=== PATIENT | male | born 1990 | race Caucasian/White ===

== ENCOUNTER 2017-07-09 10:02 | Emergency (ER) | payer OTHER ==
[~2017-07-09] VITALS: Ht 188 cm; Wt 118.0 kg
[2017-07-09 10:03] VITALS: BP 142/64; PULSE 86; RESP 16; TEMP 99; O2SAT 99
[2017-07-09] MEDS ORDERED: ACETAMINOPHEN/HYDROcodone 325 MG/5 MG TAB PO ONE (11:30)
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
== END 2017-07-09 13:49 | disposition home or self-care (01) ==
LOC: NEPK 10:02
DX: T65.891A Toxic effect of other specified substances, accidental (unintentional), initial encounter (principal); T25.49 Corrosion of unspecified degree of multiple sites of ankle and foot
CPT/HCPCS: 16020

== ENCOUNTER 2017-07-11 19:57 | Inpatient (IN) | payer OTHER ==
[~2017-07-11] VITALS: Ht 188 cm; Wt 119.8 kg
[2017-07-11 19:59] VITALS: BP 140/69; PULSE 94; RESP 16; TEMP 98.7; O2SAT 99
[2017-07-11] MEDS ORDERED: SILV1CRE20 TOPICAL (20:09)
[2017-07-11] MEDS ORDERED: BACT800T5 PO (20:09)
[2017-07-11] MEDS ORDERED: PIPERACIL-TAZO 4.5 GM PREMIX 100 ML IV STA (20:13)
[2017-07-11] MEDS ORDERED: VANCOMYCIN INJ 1,000 MG in SODIUM CHLOR 0.9% 250 ML INJ 250 ML IV STA (20:13)
[2017-07-11] MEDS ORDERED: ONDANSETRON HCL 4 MG/2 ML VIAL IV PUSH ONE (20:15)
[2017-07-11] MEDS ORDERED: MORPHINE SULFATE 4 MG/ML INJ IV PUSH ONE (20:15)
[2017-07-11 20:52] LABS: AUTOMATED NEUTROPHIL # 10.8 TH/MM3 (1.8-7.7); BASOPHIL # 0.1 TH/MM3 (0-0.2); BASOPHIL % 0.4 % (0.0-2.0); EOSINOPHIL # 0.2 TH/MM3 (0-0.4); EOSINOPHIL % 1.6 % (0.0-4.0); HEMATOCRIT 41.7 % (39.0-51.0); HEMO FLAGS DIFF FINAL; LYMPH % 17.7 % (9.0-44.0); LYMPHOCYTE # 2.6 TH/MM3 (1.0-4.8); MEAN CELL VOLUME 86.6 FL (80.0-100.0); MEAN CORPUSCULAR HEMOGLOBIN 28.9 PG (27.0-34.0); MEAN CORPUSCULAR HGB CONC 33.3 % (32.0-36.0); MONO % 6.3 % (0.0-8.0); PLATELET COUNT 319 TH/MM3 (150-450); RED BLOOD COUNT 4.81 MIL/MM3 (4.50-5.90); RED CELL DISTRIBUTION WIDTH 13.3 % (11.6-17.2); WHITE BLOOD COUNT 14.7 TH/MM3 (4.0-11.0)
[2017-07-11 21:05] LABS: ANION GAP 6 MEQ/L (5-15); AST (GOT) 16 U/L (15-37); BICARBONATE 26.9 MEQ/L (21.0-32.0); BLOOD UREA NITROGEN 15 MG/DL (7-18); CHLORIDE 104 MEQ/L (98-107); GLOMERULAR FILTRATION RATE 101 ML/MIN (>89); POTASSIUM 4.2 MEQ/L (3.5-5.1); SODIUM (NA) 137 MEQ/L (136-145)
[2017-07-11 21:06] LABS: ALT (GPT) 27 U/L (12-78)
[2017-07-11 21:09] LABS: ALKALINE PHOSPHATASE 64 U/L (45-117); TOTAL BILIRUBIN ADULT 0.3 MG/DL (0.2-1.0)
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
[2017-07-11] MEDS ORDERED: ONDANSETRON HCL 4 MG/2 ML VIAL IV PUSH PRN (22:00)
[2017-07-11] MEDS ORDERED: ACETAMINOPHEN 325 MG TAB PO PRN (22:00)
[2017-07-11] MEDS ORDERED: Vancomycin Consult Pharmacy 1 EA OTHER SCH (22:00)
[2017-07-11] MEDS ORDERED: MORPHINE SULFATE 2 MG/ML INJ IV PUSH PRN (22:00)
[2017-07-11] MEDS ORDERED: VANCOMYCIN 1,000 MG/NS 250 ML IV ONE ×2 (22:30)
[2017-07-12] VITALS (7 sets, daily range): BP systolic 120–140; BP diastolic 55–69; PULSE 65–83; RESP 16–24; TEMP 97.6–98.9; O2SAT 96–100
[2017-07-12] MEDS: PIPERACIL-TAZO 3.375 GM PREMIX 50 ML IV SCH ×4 (03:24→20:56)
[2017-07-12 07:42] LABS: AUTOMATED NEUTROPHIL # 7.4 TH/MM3 (1.8-7.7); BASOPHIL # 0.1 TH/MM3 (0-0.2); BASOPHIL % 0.6 % (0.0-2.0); EOSINOPHIL # 0.4 TH/MM3 (0-0.4); EOSINOPHIL % 3.3 % (0.0-4.0); HEMATOCRIT 40.5 % (39.0-51.0); HEMO FLAGS DIFF FINAL; LYMPH % 24.6 % (9.0-44.0); LYMPHOCYTE # 2.9 TH/MM3 (1.0-4.8); MEAN CELL VOLUME 87.5 FL (80.0-100.0); MEAN CORPUSCULAR HEMOGLOBIN 29.2 PG (27.0-34.0); MEAN CORPUSCULAR HGB CONC 33.4 % (32.0-36.0); MONO % 9.3 % (0.0-8.0); NEUT % 62.2 % (16.0-70.0); PLATELET COUNT 292 TH/MM3 (150-450); RED BLOOD COUNT 4.63 MIL/MM3 (4.50-5.90); RED CELL DISTRIBUTION WIDTH 13.5 % (11.6-17.2); WHITE BLOOD COUNT 11.9 TH/MM3 (4.0-11.0)
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
[2017-07-12] MEDS ORDERED: SILVER SULFADIAZINE 1% CR 50 GM JAR TOPICAL ONE (10:00)
[2017-07-12] MEDS: VANCOMYCIN INJ 2,250 MG in SODIUM CHLORID 0.9% 500 ML INJ 500 ML IV SCH ×2 (10:18→22:33)
[2017-07-12] MEDS: SILVER SULFADIAZINE 1% CR 50 GM JAR TOPICAL SCH ×2 (11:11→20:56)
[2017-07-12] MEDS: ACYCLOVIR 5% OINT 5 APPLIC/5 GM TUBE TOPICAL SCH ×2 (15:48→19:07)
[2017-07-12] MEDS: MORPHINE SULFATE 4 MG/ML INJ IV PUSH PRN (19:07)
[2017-07-13 03:18] VITALS: BP 142/60; PULSE 65; RESP 16; TEMP 97.6; O2SAT 100
[2017-07-13] MEDS: PIPERACIL-TAZO 3.375 GM PREMIX 50 ML IV SCH ×4 (03:23→21:15)
[2017-07-13 06:58] LABS: AUTOMATED NEUTROPHIL # 6.8 TH/MM3 (1.8-7.7); BASOPHIL # 0.1 TH/MM3 (0-0.2); BASOPHIL % 0.9 % (0.0-2.0); EOSINOPHIL # 0.4 TH/MM3 (0-0.4); EOSINOPHIL % 3.9 % (0.0-4.0); HEMATOCRIT 40.1 % (39.0-51.0); HEMO FLAGS DIFF FINAL; LYMPH % 27.9 % (9.0-44.0); LYMPHOCYTE # 3.2 TH/MM3 (1.0-4.8); MEAN CELL VOLUME 86.7 FL (80.0-100.0); MEAN CORPUSCULAR HEMOGLOBIN 28.9 PG (27.0-34.0); MEAN CORPUSCULAR HGB CONC 33.3 % (32.0-36.0); MONO % 8.1 % (0.0-8.0); NEUT % 59.2 % (16.0-70.0); PLATELET COUNT 311 TH/MM3 (150-450); RED BLOOD COUNT 4.63 MIL/MM3 (4.50-5.90); RED CELL DISTRIBUTION WIDTH 13.2 % (11.6-17.2); WHITE BLOOD COUNT 11.4 TH/MM3 (4.0-11.0)
[2017-07-13] MEDS ORDERED: POLYETHYLENE GLYCOL 17 GM PKG PO PRN (07:45)
[2017-07-13 08:02] VITALS: BP 138/79; PULSE 66; RESP 18; TEMP 98; O2SAT 98
[2017-07-13 08:11] LABS: BICARBONATE 25.9 MEQ/L (21.0-32.0); MAGNESIUM 2.2 MG/DL (1.5-2.5); POTASSIUM 4.2 MEQ/L (3.5-5.1)
[2017-07-13] MEDS: ACYCLOVIR 5% OINT 5 APPLIC/5 GM TUBE TOPICAL SCH ×3 (08:16→18:08)
[2017-07-13] MEDS: DOCUSATE SODIUM 100 MG CAP PO SCH ×2 (08:16→21:18)
[2017-07-13] MEDS: SILVER SULFADIAZINE 1% CR 50 GM JAR TOPICAL SCH ×2 (08:16→21:19)
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
[2017-07-13] MEDS ORDERED: PHARMACY ORDERED LAB ONE (09:45)
[2017-07-13] MEDS: VANCOMYCIN INJ 2,250 MG in SODIUM CHLORID 0.9% 500 ML INJ 500 ML IV SCH (10:00)
[2017-07-13 11:29] VITALS: BP 118/66; PULSE 79; RESP 18; TEMP 97.9; O2SAT 99
[2017-07-13 16:49] VITALS: BP 121/72; PULSE 71; RESP 20; TEMP 99; O2SAT 98
[2017-07-13 20:00] VITALS: BP 134/69; PULSE 83; RESP 22; TEMP 98.3; O2SAT 99
[2017-07-13] MEDS: VANCOMYCIN INJ 2,000 MG in SODIUM CHLORID 0.9% 500 ML INJ 500 ML IV SCH (22:16)
[2017-07-13] MEDS: MORPHINE SULFATE 4 MG/ML INJ IV PUSH PRN (22:16)
[2017-07-14] VITALS: BP 138/89; PULSE 77; RESP 20; TEMP 98.8; O2SAT 98
[2017-07-14] MEDS: PIPERACIL-TAZO 3.375 GM PREMIX 50 ML IV SCH ×2 (03:33→09:05)
[2017-07-14 04:00] VITALS: BP 143/80; PULSE 67; RESP 20; TEMP 98.1; O2SAT 98
[2017-07-14] MEDS: ACYCLOVIR 5% OINT 5 APPLIC/5 GM TUBE TOPICAL SCH ×3 (09:00→17:42)
[2017-07-14] MEDS: DOCUSATE SODIUM 100 MG CAP PO SCH ×2 (09:04→21:00)
[2017-07-14] MEDS: SILVER SULFADIAZINE 1% CR 50 GM JAR TOPICAL SCH (09:05)
[2017-07-14] MEDS: VANCOMYCIN INJ 2,000 MG in SODIUM CHLORID 0.9% 500 ML INJ 500 ML IV SCH (09:07)
[2017-07-14 10:56] VITALS: BP 127/77; PULSE 71; RESP 17; TEMP 98.3; O2SAT 99
[2017-07-14] MEDS: CLINDAMYCIN 150 MG CAP PO SCH ×2 (12:26→17:39)
--- NOTE | 2017-07-14 13:26 | HHI.PR ---
Subjective Remarks Patient resting in bed with family member/friend at bedside Patient and guest in the room report swelling has decreased greatly erythema has not gone past the markings placed by hospital staff patient and guest in the room feel as though the redness is improving Objective Vitals Vital Signs Date Time Temp Pulse Resp B/P (MAP) Pulse Ox O2 Delivery O2 Flow Rate FiO2 07/14/17 10:56 98.3 71 17 127/77 (94) 99 07/14/17 04:00 98.1 67 20 143/80 (101) 98 07/14/17 00:00 98.8 77 20 138/89 (105) 98 07/13/17 20:00 98.3 83 22 134/69 (90) 99 07/13/17 16:49 99.0 71 20 121/72 (88) 98 07/14/17 07/14/17 07/15/17 14:59 22:59 06:59 Intake Total 550 ml Balance 550 ml IV Total 550 ml Result Diagram: 07/13/17 0550 07/13/17 0650 Other Results Laboratory Tests Test 07/11/17 20:35 07/12/17 06:44 07/12/17 10:45 07/13/17 05:50 White Blood Count 14.7 TH/MM3 11.9 TH/MM3 11.4 TH/MM3 Red Blood Count 4.81 MIL/MM3 4.63 MIL/MM3 4.63 MIL/MM3 Hemoglobin 13.9 GM/DL 13.5 GM/DL 13.4 GM/DL Hematocrit 41.7 % 40.5 % 40.1 % Mean Corpuscular Volume 86.6 FL 87.5 FL 86.7 FL Mean Corpuscular Hemoglobin 28.9 PG 29.2 PG 28.9 PG Mean Corpuscular Hemoglobin Concent 33.3 % 33.4 % 33.3 % Red Cell Distribution Width 13.3 % 13.5 % 13.2 % Platelet Count 319 TH/MM3 292 TH/MM3 311 TH/MM3 Mean Platelet Volume 8.4 FL 8.7 FL 8.6 FL Neutrophils (%) (Auto) 74.0 % 62.2 % 59.2 % Lymphocytes (%) (Auto) 17.7 % 24.6 % 27.9 % Monocytes (%) (Auto) 6.3 % 9.3 % 8.1 % Eosinophils (%) (Auto) 1.6 % 3.3 % 3.9 % Basophils (%) (Auto) 0.4 % 0.6 % 0.9 % Neutrophils # (Auto) 10.8 TH/MM3 7.4 TH/MM3 6.8 TH/MM3 Lymphocytes # (Auto) 2.6 TH/MM3 2.9 TH/MM3 3.2 TH/MM3 Monocytes # (Auto) 0.9 TH/MM3 1.1 TH/MM3 0.9 TH/MM3 Eosinophils # (Auto) 0.2 TH/MM3 0.4 TH/MM3 0.4 TH/MM3 Basophils # (Auto) 0.1 TH/MM3 0.1 TH/MM3 0.1 TH/MM3 CBC Comment DIFF FINAL DIFF FINAL DIFF FINAL Differential Comment Blood Urea Nitrogen 15 MG/DL Creatinine 0.90 MG/DL Random Glucose 89 MG/DL Total Protein 7.2 GM/DL Albumin 3.6 GM/DL Calcium Level 8.5 MG/DL Alkaline Phosphatase 64 U/L Aspartate Amino Transf (AST/SGOT) 16 U/L Alanine Aminotransferase (ALT/SGPT) 27 U/L Total Bilirubin 0.3 MG/DL Sodium Level 137 MEQ/L Potassium Level 4.2 MEQ/L Chloride Level 104 MEQ/L Carbon Dioxide Level 26.9 MEQ/L Anion Gap 6 MEQ/L Estimat Glomerular Filtration Rate 101 ML/MIN Lactic Acid Level 1.1 mmol/L Test 07/13/17 06:50 07/13/17 09:45 Blood Urea Nitrogen 13 MG/DL Creatinine 0.78 MG/DL Random Glucose 72 MG/DL Calcium Level 9.0 MG/DL Magnesium Level 2.2 MG/DL Sodium Level 139 MEQ/L Potassium Level 4.2 MEQ/L Chloride Level 105 MEQ/L Carbon Dioxide Level 25.9 MEQ/L Anion Gap 8 MEQ/L Estimat Glomerular Filtration Rate 119 ML/MIN Vancomycin Level Trough 17.8 MCG/ML Objective Remarks GENERAL: NAD, AAOx3 SKIN: He has a burn with Silvadene across the dorsal right foot and right ankle. Less swelling and less erythema in the right foot ENT: Ulcer in the left crease of the mouth with some cracking of the skin- improving CARDIO: Regular. RESP: CTA bilaterally. No wheezes, rales, or rhonchi. ABD: +BS, soft, non-tender, nondistended. A/P Problem List: (1) Cellulitis ICD Codes: L03.90 - Cellulitis, unspecified Status: Acute Plan: - Pt is a 27 y/o male without significant PMH who presented to the ED with complaints of worsening of a burn on the dorsal aspect of the right ankle and foot. The burn occurred on 07/07/17 when he was moving some oyster cultivator containers around in the garage. He went to an urgent care clinic on 07/08 and was prescribed Bactrim, topical antibacterial, and Lortab. He was seen in the ED on 07/09/17 as there was concern about worsening pain and redness. In the ED they performed a light debridement with iodine scrub, which below revealed healthy light bleeding tissue. He was advised to continue the antibiotics and topical Silvadene and has been compliant with this treatment. - Pt presented back to the ED on 07/11 with worsening redness around the burn which had not been there previously, pt appears to have a second degree chemical burn with concomitant cellulitis. - On Zosyn and Vancomycin 07/12 - 07/14, DC'd - oral abx Clindamycin 300mg Q6H - Blood cultures were drawn in the ED with NGTD - requested nurse to remove silvadine and obtain wound culture - discussed case with Podiatry Dr. Dukes who will see the patient, consult placed - Cont. Silvadene application BID - Monitor for any worsening erythema, fever or chills - Pain control PRN - Tylenol PRN fevers or headache - Pt reports that he started having a sore in the left corner of his mouth 07/13 , pt given a trial of topical Acyclovir TID seems to be improving HSV 1, 2 IgM Ab are pending pending - Supportive care (2) Chemical burn ICD Codes: T30.4 - Corrosion of unspecified body region, unspecified degree Status: Acute Plan: - See above Assessment and Plan Patient examined. Assessment and plan formulated with Dalia Russ PA-C. I agree with the above. right foot chemical burn with ulceration. swelling and cellulitis improved from admission. no cultures were taken on admission. on vanco and zosyn. I think he needs to follow with podiatry outpatient. spoke to dr Dukes and recc. cx of wound with gpc/gnr coverage on d/c. He will see the pt tonight and pt very eager for d/c home after. ADDENDUM: SPOKE TO DR DUKES OK TO DC WITH XEROFORM ON WOUND. F/U WEDNESDAY IN OFFICE FOR RECHECK. F/U WOUND CX. HE WOULD PREFER BROAD COVER WITH CIPRO AND CLINDA. Problem Qualifiers (1) Cellulitis: Qualified Codes: L03.115 - Cellulitis of right lower limb Dalia Russ Jul 14, 2017 13:26 Jonathan Muñoz MD Jul 14, 2017 13:41
[2017-07-14] MEDS ORDERED: NYSTATIN 100,000 U/GM PWD 15 GM BTL TOPICAL SCH (14:00)
[2017-07-14 18:59] VITALS: BP 136/87; PULSE 72; RESP 18; TEMP 98.1; O2SAT 96
[2017-07-14 19:53] LABS: HSV2 IGM IFA NEGATIVE
[2017-07-14] MEDS ORDERED: CIPR500T2 PO (20:01)
[2017-07-14] MEDS ORDERED: CLIN300C5 PO (20:01)
--- NOTE | 2017-07-14 20:01 | HHI.DCPOC ---
Discharge Care Plan Diagnosis: (1) Chemical burn (2) Cellulitis Goals to Promote Your Health * To prevent worsening of your condition and complications * To maintain your health at the optimal level Directions to Meet Your Goals Take your medications as prescribed Follow your dietary instruction Follow activity as directed Keep your appointments as scheduled Take your immunizations and boosters as scheduled If your symptoms worsen call your PCP, if no PCP go to Urgent Care Center or Emergency Room Smoking is Dangerous to Your Health. Avoid second hand smoke Call the 24-hour hour crisis hotline for domestic abuse at Jonathan Muñoz MD Jul 14, 2017 20:01
--- NOTE | 2017-07-15 00:04 | MB ---
cc: RAEGAN DUKES DPM DATE OF CONSULTATION: 07/14/2017 REASON FOR CONSULTATION: Right foot infection, chemical burn. HISTORY OF PRESENT ILLNESS 27-year-old male who complained of a worsening burn that occurred on the top of his foot around 11:15 when he was moving some wellness nurse around the garage and he noticed his shoe was wet. About 45 minutes later he developed a severe burning. He presented to the ED and he was seen, and there was concern about worsening pain. He was given outpatient oral antibiotics and iodine scrub. He continued to worsen, and on 07/11 he was admitted and he began IV antibiotics. The patient has been on IV antibiotics until early today and then he was switched to oral clindamycin. Currently I am seeing the patient bedside with his family. There is significant improvement and they are wondering if this can be followed up as outpatient. PAST MEDICAL HISTORY: Positive for DARRICK on C-PAP. OUTPATIENT MEDICATIONS 1. Bactrim. 2. Silvadene. ALLERGIES: NO KNOWN DRUG ALLERGIES. SOCIAL HISTORY: Denies alcohol, illicit use of tobacco. PHYSICAL EXAMINATION: VITAL SIGNS: Temperature 98.1, pulse rate 72. Respiratory rate 18, blood pressure 136/87. Sating 96% on room air. GENERAL: The patient is alert and oriented, now seen bedside, exhibiting nonlabored respirations. He is verbal, appropriate. EXTREMITIES: The extremities were examined. There was noted to be a central fibrotic eschar type wound over the dorsal aspect of the ankle and a secondary type dorsal fibrotic eschar type wound on the dorsum of the foot. It measures greater than 4 cm in width and in length, and the ankle is approximately 10 cm x 6 cm. There appears to be no obvious drainage. There appears to be moderate swelling. There is minimal redness. On the periphery, baxter yellow type eschar, there appears to be fibrotic edges with superficial blistering and purple skin that appears to be exposure margin to the chemical. The patient is capable of range of motion of the digits. He does not show any signs of severe soft tissue infection such as necrotizing fasciitis. Pulses are palpable. Sensation intact. There is good muscle strength. Left lower extremity was free from any obvious skin insult or injury. LABORATORY FINDINGS: White blood cell count 14, trending down to 11.4, hemoglobin and hematocrit 13 and 40. Platelet count 311. Chem 7, sodium 139, potassium 4.2, chloride 105, CO2 25.9, BUN is 13, creatinine 0.78, random glucose is 72. Blood culture negative 3 days, wound culture ordered and pending. It appears it started today around noon ASSESSMENT/PLAN Right foot chemical burn with soft tissue infection. It appears that the patient is responding to IV antibiotics. There is a question of whether or not to send him out on oral antibiotics or continue IV antibiotics. I educated the patient in great detail that I do not have a culture in which I can discuss 100% the best antibiotic, however, it is reasonable that the patient will continue to improve if he continues clindamycin with the addition of Cipro. I am recommending Xeroform bandage to the wound. The patient should isolate the leg with a plastic bag while bathing to prevent contamination. I will see the patient Wednesday within my office. I reviewed the case with Dr. Muñoz and we both understand that if the patient has significant increase in pain and redness, that he may need to represent for IV antibiotics at a later date. SARITA Parsons/STEPHANIE /8:07 PM /11:44 PM
[2017-07-15] MEDS ORDERED: PHARMACY ORDERED LAB ONE (09:45)
[2017-07-15 11:22] LABS: HSV IGM 1 TITER ND TITER; HSV IGM II TITER ND TITER
== END 2017-07-14 22:20 | disposition home or self-care (01) | DRG 603 ==
LOC: NEPD 19:57 → NEDA 21:56 → NEPGCP 07-12 00:27 → OBSVTOIN 07-13 07:37 → N05B 07-13 14:12
PROVIDERS: ADMIT Hospitalist; ATTEND Hospitalist
DX: L03.115 Cellulitis of right lower limb (principal); L97.519 Non-pressure chronic ulcer of other part of right foot with unspecified severity; T30.4 Corrosion of unspecified body region, unspecified degree; T54.2X1D Toxic effect of corrosive acids and acid-like substances, accidental (unintentional), subsequent encounter; G47.33 Obstructive sleep apnea (adult) (pediatric); K12.1 Other forms of stomatitis
CPT/HCPCS: 80048; 80053; 80202; 83605; 83735; 85025; 86695; 86696; 87040; 87070; 87205; 96366; 96376; G0378; J2270; J2405; J2543; J3370; J7040; J7050